=== PATIENT | male | born 1995 | race African-American/Black ===

== ENCOUNTER 2018-03-13 20:24 | Emergency (ER) | payer SELFPAY ==
[2018-03-13 21:13] VITALS: BP 122/75; PULSE 67; RESP 16; TEMP 98.5; O2SAT 100
[2018-03-13] MEDS ORDERED: DICL75TA PO (23:21)
[2018-03-13] MEDS ORDERED: BACL10TA PO (23:21)
[2018-03-13] MEDS ORDERED: ORPHENADRINE INJ 60 MG/2 ML AMP IM ONE (23:30)
[2018-03-13] MEDS ORDERED: KETOROLAC TROMETHAMINE 60 MG/2 ML (IM) VIAL IM ONE (23:30)
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
== END 2018-03-13 23:52 | disposition home or self-care (01) ==
LOC: NEPD 20:24
DX: S29.012A Strain of muscle and tendon of back wall of thorax, initial encounter (principal); V43.52XA Car driver injured in collision with other type car in traffic accident, initial encounter; Y92.410 Unspecified street and highway as the place of occurrence of the external cause
CPT/HCPCS: 96372; 99283; J1885; J2360